=== PATIENT | male | born 1980 | race Caucasian/White ===

== ENCOUNTER 2019-06-21 19:19 | Inpatient (IN) | payer MEDICAID ==
[~2019-06-21] VITALS: Ht 165.1 cm; Wt 83.9 kg
[~2019-06-21 19:19] MED LIST: DIVA-78 PO; PHEN100C23 PO; QUET200T PO
[2019-06-21 21:08] LABS: BASOPHILS % (AUTO) 0.4 % (0.0-2.0); HEMATOCRIT 43.8 % (41-53); HEMOGLOBIN 14.8 g/dL (13.5-17.5); LYMPHOCYTES # (AUTO) 1.3 K/uL (1.0-4.8); LYMPHOCYTES % (AUTO) 17.4 % (22.0-44.0); MEAN CORPUSCULAR HEMOGLOBIN 30.9 pg (26.0-34.0); MEAN CORPUSCULAR HGB CONC 33.9 G/dL (31.0-37.0); MEAN CORPUSCULAR VOLUME 91 fL (80-100); MONOCYTES # (AUTO) 0.6 K/uL (0.1-1.0); MONOCYTES % (AUTO) 7.9 % (2.0-9.0); NEUTROPHILS # (AUTO) 5.4 K/uL (1.8-7.7); NEUTROPHILS % (AUTO) 73.3 % (40.0-70.0); PLATELET COUNT (AUTO) 321 K/uL (150-450); RED CELL DISTRIBUTION WIDTH 14.1 % (11.5-14.5)
[2019-06-21 21:17] LABS: ANION GAP 5 mmol/L (8-16); CALCIUM, TOTAL 9.5 mg/dL (8.8-10.5); CARBON DIOXIDE 30 mmol/L (22-29); CHLORIDE 103 mmol/L (98-107); CREATININE 1.29 mg/dL (0.60-1.30); GLOMERULAR FILTR. RATE CALC > 60 mL/min (>60); GLUCOSE,RANDOM 160 mg/dL (70-110); POTASSIUM 4.2 mmol/L (3.5-5.1); SODIUM SERUM 138 mmol/L (136-145); UREA NITROGEN, BLOOD 20 mg/dL (7-18)
[2019-06-21 21:23] LABS: ALANINE AMINOTRANSFERASE 130 U/L (12-78); ALBUMIN 4.2 g/dL (3.4-5.0); ALKALINE PHOSPHATASE 111 U/L (46-116); ASPARTATE AMINOTRANSFERASE 54 U/L (15-37); BILIRUBIN,TOTAL 0.3 mg/dL (0.1-1.0)
[2019-06-21] MEDS ORDERED: QUEtiapine FUMARATE 25 MG TABLET PO ONE (23:00)
[2019-06-21 23:19] LABS: AMPHET/METH SCREEN,URINE NEGATIVE (NEGATIVE); BARBITURATE SCREEN, URINE NEGATIVE (NEGATIVE); BENZODIAZEPINES SCREEN,URINE NEGATIVE (NEGATIVE); CANNABINOID SCREEN,URINE NEGATIVE (NEGATIVE); COCAINE SCREEN,URINE NEGATIVE (NEGATIVE); METHADONE SCREEN, URINE NEGATIVE (NEGATIVE); OPIATE SCREEN,URINE NEGATIVE (NEGATIVE)
[2019-06-21 23:29] LABS: PHENCYCLIDINE SCREEN,URINE NEGATIVE (NEGATIVE)
[2019-06-22] MEDS ORDERED: QUEtiapine FUMARATE 100 MG TABLET PO PRN (00:45)
[2019-06-22] MEDS ORDERED: ZOLPIDEM TARTRATE 10 MG TABLET PO PRN (00:45)
[2019-06-22 03:24] VITALS: BP 121/84
[2019-06-22] MEDS ORDERED: -PHARMACY VACCINE NOTE- MISC ONE (05:15)
[2019-06-22 08:29] VITALS: BP 127/82
[2019-06-22] MEDS: SERTRALINE HCL 50 MG TABLET PO SCH (12:46)
[2019-06-22 17:02] VITALS: BP 125/76
[2019-06-22] MEDS ORDERED: DOCUSATE SODIUM 100 MG CAPSULE PO PRN (20:15)
[2019-06-22] MEDS ORDERED: MAGNESIUM HYDROXIDE SUSPENSION 30 ML UDCUP PO PRN (20:15)
[2019-06-22] MEDS ORDERED: PETROLATUM,WHITE 28 GM JELLY TP PRN (20:15)
[2019-06-22] MEDS ORDERED: IBUPROFEN 400 MG TABLET PO PRN (20:15)
[2019-06-22] MEDS ORDERED: GuaiFENesin/D-METHORPHAN [SUGAR-FREE] 200-20MG/10 ML SYRUP UDCUP PO PRN (20:15)
[2019-06-22] MEDS ORDERED: ALBUTEROL SULFATE HFA 90 MCG/PUFF 8 GM INHALER IH PRN (20:15)
[2019-06-22] MEDS ORDERED: NICOTINE 14 MG/24 HOUR PATCH TD PRN (20:15)
[2019-06-22] MEDS ORDERED: ONDANSETRON HCL 4 MG TABLET PO PRN (20:15)
[2019-06-22] MEDS ORDERED: ACETAMINOPHEN 325 MG TABLET PO PRN (20:15)
[2019-06-22] MEDS ORDERED: MAG HYDROX/AL HYDROX/SIMETH ES 30 ML SUSPENSION UDCUP PO PRN (20:15)
[2019-06-22] MEDS ORDERED: CloNIDine HCL 0.1 MG TABLET PO PRN (20:15)
[2019-06-22] MEDS ORDERED: LOPERAMIDE HCL 2 MG CAPSULE PO PRN (20:15)
[2019-06-22] MEDS: QUEtiapine FUMARATE 200 MG TABLET PO SCH (20:51)
[2019-06-22] MEDS: DIVALPROEX SODIUM 500 MG DR TABLET PO SCH (21:00)
[2019-06-23 06:39] VITALS: BP 122/72
[2019-06-23 08:31] LABS: CHOL/HDL RATIO 5.2 (4.2-7.3)
[2019-06-23 08:35] VITALS: BP 104/63
[2019-06-23] MEDS: PHENYTOIN SODIUM 100 MG ER CAPSULE PO SCH (09:00)
[2019-06-23] MEDS: SERTRALINE HCL 50 MG TABLET PO SCH (09:25)
[2019-06-23] MEDS: LORazepam 2 MG TABLET PO PRN ×2 (13:47→19:39)
[2019-06-23 16:11] VITALS: BP 120/79
[2019-06-23] MEDS: QUEtiapine FUMARATE 200 MG TABLET PO SCH (20:26)
[2019-06-23] MEDS: DIVALPROEX SODIUM 500 MG DR TABLET PO SCH (20:26)
[2019-06-24 06:51] VITALS: BP 108/70
[2019-06-24] MEDS: LORazepam 2 MG TABLET PO PRN ×3 (07:07→17:53)
[2019-06-24] MEDS: SERTRALINE HCL 50 MG TABLET PO SCH (08:27)
[2019-06-24] MEDS: PHENYTOIN SODIUM 100 MG ER CAPSULE PO SCH (08:27)
[2019-06-24 08:37] VITALS: BP 116/74
[2019-06-24] MEDS: DIVALPROEX SODIUM 500 MG DR TABLET PO SCH ×2 (09:15→21:07)
[2019-06-24 17:11] VITALS: BP 126/78
[2019-06-24] MEDS: QUEtiapine FUMARATE 200 MG TABLET PO SCH (21:07)
[2019-06-25 06:29] VITALS: BP 100/66
[2019-06-25] MEDS: PHENYTOIN SODIUM 100 MG ER CAPSULE PO SCH (08:41)
[2019-06-25] MEDS: DIVALPROEX SODIUM 500 MG DR TABLET PO SCH ×2 (08:42→21:00)
[2019-06-25] MEDS: SERTRALINE HCL 50 MG TABLET PO SCH (08:42)
[2019-06-25 09:10] VITALS: BP 124/68
[2019-06-25] MEDS: LORazepam 2 MG TABLET PO PRN ×2 (09:10→15:59)
[2019-06-25 16:10] VITALS: BP 125/84
[2019-06-25] MEDS: QUEtiapine FUMARATE 200 MG TABLET PO SCH (21:04)
[2019-06-26 03:13] VITALS: BP 113/79
[2019-06-26 08:08] VITALS: BP 123/76
[2019-06-26] MEDS: PHENYTOIN SODIUM 100 MG ER CAPSULE PO SCH (08:21)
[2019-06-26] MEDS: DIVALPROEX SODIUM 500 MG DR TABLET PO SCH (08:21)
[2019-06-26] MEDS: SERTRALINE HCL 50 MG TABLET PO SCH (08:22)
[2019-06-26] MEDS: LORazepam 2 MG TABLET PO PRN ×2 (08:22→15:20)
[2019-06-26 16:07] VITALS: BP 126/66
[2019-06-26] MEDS: QUEtiapine FUMARATE 300 MG TABLET PO SCH (21:36)
[2019-06-27 01:48] VITALS: BP 118/71
[2019-06-27 07:53] LABS: HEMOGLOBIN A1C 5.3 % (3.8-5.6)
[2019-06-27] MEDS: PHENYTOIN SODIUM 100 MG ER CAPSULE PO SCH (08:52)
[2019-06-27] MEDS: SERTRALINE HCL 50 MG TABLET PO SCH (08:52)
[2019-06-27] MEDS: LORazepam 2 MG TABLET PO PRN ×2 (12:24→20:40)
[2019-06-27 16:23] VITALS: BP 125/88
[2019-06-27] MEDS: QUEtiapine FUMARATE 300 MG TABLET PO SCH (20:40)
[2019-06-28 04:39] VITALS: BP 95/73
[2019-06-28 08:12] VITALS: BP 108/62
[2019-06-28] MEDS: PHENYTOIN SODIUM 100 MG ER CAPSULE PO SCH (08:53)
[2019-06-28] MEDS: SERTRALINE HCL 50 MG TABLET PO SCH (08:53)
[2019-06-28 16:31] VITALS: BP 116/81
[2019-06-28] MEDS: QUEtiapine FUMARATE 300 MG TABLET PO SCH (21:31)
[2019-06-28] MEDS: LORazepam 2 MG TABLET PO PRN (21:35)
[2019-06-29 01:37] VITALS: BP 125/73
[2019-06-29] MEDS ORDERED: QUET300T2 PO (06:23)
[2019-06-29] MEDS: SERTRALINE HCL 50 MG TABLET PO SCH (08:39)
[2019-06-29] MEDS: PHENYTOIN SODIUM 100 MG ER CAPSULE PO SCH (08:39)
[2019-06-29 09:31] VITALS: BP 109/81
[2019-06-29] MEDS ORDERED: SERT50TA12 PO (11:24)
[2019-06-29] MEDS ORDERED: QUET300T18 PO (11:24)
== END 2019-06-29 11:50 | disposition home or self-care (01) | DRG 751 ==
LOC: EMS 19:19 → B3A 06-22 01:15 → B2S 06-28 12:22
DX: F33.2 Major depressive disorder, recurrent severe without psychotic features (principal); F25.1 Schizoaffective disorder, depressive type; I95.9 Hypotension, unspecified; R45.851 Suicidal ideations; G40.909 Epilepsy, unspecified, not intractable, without status epilepticus; I10 Essential (primary) hypertension; F43.10 Post-traumatic stress disorder, unspecified; F19.10 Other psychoactive substance abuse, uncomplicated; F15.90 Other stimulant use, unspecified, uncomplicated; R73.9 Hyperglycemia, unspecified; F41.9 Anxiety disorder, unspecified; Z59.0 Homelessness; Z91.5 Personal history of self-harm; Z88.8 Allergy status to other drugs, medicaments and biological substances; Z79.899 Other long term (current) drug therapy
CPT/HCPCS: 83036; 87081; G0480